=== PATIENT | female | born 1985 | race Caucasian/White ===

== ENCOUNTER 2020-12-20 20:15 | Emergency (ER) | payer OTHER ==
[~2020-12-20] VITALS: Ht 160 cm; Wt 60.8 kg
--- NOTE | 2020-12-20 20:50 | NUR ---
BIBS FOR C/O WORSENING L FLANK PAIN, DYSURIA, HEMATURIA AND LOWER ABD PAIN X 1 WEEK. PT ALERT AND ORIENTED X3. AMBULATORY WITH NON LABORED BREATHING.
[2020-12-20] MEDS ORDERED: KETOROLAC TROMETHAMINE INJ 30 MG/ML VIAL ONE (21:12)
[2020-12-20] MEDS ORDERED: ONDANSETRON 4 MG TAB.RAPDIS ONE (21:12)
[2020-12-20] MEDS ORDERED: ONDANSETRON 4 MG TAB.RAPDIS SL ONE (21:30)
[2020-12-20] MEDS ORDERED: KETOROLAC TROMETHAMINE INJ 60 MG/2 ML VIAL IM ONE (21:30)
[2020-12-20 21:33] LABS: BILIRUBIN,URINE NEGATIVE (NEGATIVE); COLOR,URINE YELLOW (YELLOW); LEUKOCYTE ESTERASE ,URINE LARGE (NEGATIVE); NITRITE, URINE POSITIVE (NEGATIVE); PH,URINE 6.5 (5.0-8.0); PROTEIN,URINE 30 mg/dl (NEGATIVE); UGLUCOSE NEGATIVE (NEGATIVE)
[2020-12-20 21:39] LABS: BACTERIA,URINE 3+ /HPF (None Seen); RBC,URINE 21-50 /HPF (0-2); WBC,URINE 81-100 /HPF (0-3)
[2020-12-20] MEDS ORDERED: SULF1TAB48 PO (21:45)
[2020-12-20] MEDS ORDERED: IBUP-1955 PO (21:45)
[2020-12-20] MEDS ORDERED: ONDA4TAB11 PO (21:45)
[2020-12-20] MEDS ORDERED: LIDOCAINE /MPF 1% VIAL 5 ML VIAL ONE (21:47)
[2020-12-20] MEDS ORDERED: CEFTRIAXONE 1 G VIAL ONE (21:47)
[2020-12-20 21:52] VITALS: BP 133/78
--- NOTE | 2020-12-20 21:52 | NUR ---
Patient discharged to home in stable condition. Written and verbal after care instructions given. Patient verbalizes understanding of instruction. RX given
[2020-12-20] MEDS ORDERED: CEFTRIAXONE 1 G VIAL IM ONE (22:00)
== END 2020-12-20 21:53 | disposition home or self-care (01) ==
LOC: ER 20:19
DX: N12 Tubulo-interstitial nephritis, not specified as acute or chronic (principal); Z60.2 Problems related to living alone; Z79.899 Other long term (current) drug therapy
CPT/HCPCS: 81001; 84703; 87077; 87086; 87186; 96372 ×2; 99284; J0696; J1885; J3490; Q0162